=== PATIENT | male | born 1980 | race American Indian/Alaskan Native ===

== ENCOUNTER 2016-12-30 13:43 | Emergency (ER) | payer OTHER ==
[2016-12-30 14:51] VITALS: BP 105/63
[2016-12-30 15:29] LABS: Bilirubin,Urine NEG (Negative); Blood,Urine NEG (Negative); Ketones,Urine 20 mg/dL (Negative); Leukocyte Esterase,Urine NEG (Negative); Mucus,Urine FEW /HPF; Nitrite,Urine NEG (Negative); Protein,Urine <15 mg/dL mg/dL (Negative); Urobilinogen,Urine < 2.0 mg/dL (<2.0)
[2016-12-30 15:37] LABS: Anion Gap 16 mmol/L; BUN/Creatinine Ratio 9.09; Blood Urea Nitrogen 10 mg/dL (9-20); Calcium 8.9 mg/dL (8.4-10.2); Carbon Dioxide 26 mmol/L (22-30); Chloride 100.1 mmol/L (98-107); Glucose 88 mg/dL (75-100); Potassium 4.2 mmol/L (3.6-5.0); Sodium 138 mmol/L (137-145)
[2016-12-30 15:38] LABS: Basophils % (Auto) 0.1 % (0.0-1.8); Hematocrit 44.6 % (35.5-45.6); Mean Corpuscular HGB Conc 34 % (32-34); Mean Corpuscular Hemoglobin 32 pg (28-32); Mean Corpuscular Volume 96 fl (84-94); Platelet Count 241 K/mm3 (140-440); Red Blood Count 4.66 M/mm3 (3.65-5.03); Red Cell Distribution Width 15.5 % (13.2-15.2); White Blood Count 7.1 K/mm3 (4.5-11.0)
== END 2016-12-30 21:20 | disposition left against medical advice (07) ==
LOC: ED 13:43
DX: R10.9 Unspecified abdominal pain (principal); Z53.21 Procedure and treatment not carried out due to patient leaving prior to being seen by health care provider
CPT/HCPCS: 36415; 80048; 81001; 85025

== ENCOUNTER 2017-09-02 14:02 | Emergency (ER) | payer OTHER ==
[2017-09-02 14:10] VITALS: BP 111/57
== END 2017-09-02 14:11 | disposition left against medical advice (07) ==
LOC: ED 14:02
DX: M54.5 Low back pain (principal); R07.89 Other chest pain; Z53.21 Procedure and treatment not carried out due to patient leaving prior to being seen by health care provider
CPT/HCPCS: 93005; 93010